=== PATIENT | female | born 1995 | race Caucasian/White ===

== ENCOUNTER 2016-10-29 14:36 | Observation (INO) | payer OTHER ==
[2012-09-12 19:47] VITALS: O2SAT 98
[2016-10-29 15:02] VITALS: RESP 18
[2016-10-29 15:45] VITALS: BP 108/59; PULSE 64; TEMP 99.1
[2016-10-29 16:08] LABS: APPEARANCE,URINE Slightly Cloudy; BILIRUBIN,URINE NEGATIVE (NEGATIVE); COLOR,URINE Yellow; GLUCOSE, URINE (UA) NEGATIVE (NEGATIVE); KETONES,URINE NEGATIVE (NEGATIVE); LEUKOCYTE ESTERASE ,URINE 2+ (NEGATIVE); NITRATE,URINE NEGATIVE (NEGATIVE); OCCULT BLOOD,URINE NEGATIVE (NEG-TRACE); UROBILINOGEN,URINE 0.2 (0.2-1.0 EU)
[2016-10-29 16:22] LABS: RBC,URINE NEG (0-3AV/HPF)
== END 2016-10-29 17:35 | disposition home or self-care (01) | DRG 780 ==
LOC: OB 14:36
PROVIDERS: ADMIT Family Medicine; ATTEND Family Medicine
DX: O47.1 False labor at or after 37 completed weeks of gestation (principal); Z3A.37 37 weeks gestation of pregnancy
CPT/HCPCS: 59025; 81001

== ENCOUNTER 2016-11-11 09:15 | Inpatient (IN) | payer OTHER ==
[2016-11-11] MEDS ORDERED: OXYTOCIN 10000 MU/ML SOL IM PRN (09:32)
[2016-11-11] MEDS ORDERED: LACTATED RINGERS 1,000 ML IV PRN (09:32)
[2016-11-11] MEDS ORDERED: CARBOPROST 250 MCG/ML SOL IM PRN (09:32)
[2016-11-11] MEDS ORDERED: MEPIVACAINE HCL 1% MPF 30 ML SOL INFIL PRN (09:32)
[2016-11-11] MEDS ORDERED: FENTANYL 100MCG/2ML SOL IV PRN (09:32)
[2016-11-11] MEDS ORDERED: METHYLERGONOVINE MALEATE 0.2 MG/ML SOL IM PRN (09:32)
[2016-11-11] MEDS ORDERED: SODIUM CHLORIDE 0.9% FLUSH 10 ML SOL IV PRN (09:32)
[2016-11-11] MEDS ORDERED: SODIUM CHLORIDE 0.9% FLUSH 10 ML SOL IV SCH (09:45)
[2016-11-11 10:33] LABS: BASOPHILS % (AUTO) 0 % (0-3); EOSINOPHILS % (AUTO) 1 % (0-9); HEMATOCRIT 36 % (35-47); MEAN CORPUSCULAR HGB CONC 36.8 gm/dl (32.0-36.0); MEAN CORPUSCULAR VOLUME 86 fL (81-99); MONOCYTES % (AUTO) 8.7 % (0-12); NEUTROPHILS % (AUTO) 76.1 % (37-80)
[2016-11-11] MEDS ORDERED: MORPHINE SULFATE 0.5 MG/ML SOL ONE (10:58)
[2016-11-11] MEDS ORDERED: DIPHENHYDRAMINE 50 MG/ML SOL IM PRN (10:59)
[2016-11-11] MEDS ORDERED: HYDROXYZINE HYDROCHLORIDE 25 MG/ML SOL IM PRN (10:59)
[2016-11-11] MEDS ORDERED: NALOXONE HYDROCHLORIDE 0.4 MG/ML SOL IV PRN (10:59)
[2016-11-11] MEDS ORDERED: DIPHENHYDRAMINE 25 MG CAP PO PRN (10:59)
[2016-11-11] MEDS ORDERED: LACTATED RINGERS 1,000 ML IV SCH ×2 (11:00)
[2016-11-11] MEDS ORDERED: TEMAZEPAM 15MG 15 MG CAP PO PRN (14:57)
[2016-11-11] MEDS ORDERED: METHYLERGONOVINE MALEATE 0.2 MG TAB PO PRN (14:57)
[2016-11-11] MEDS ORDERED: BISACODYL 10 MG SUP PR PRN (14:57)
[2016-11-11] MEDS ORDERED: APAP/HYDROCODONE 325/5 TAB PO PRN (14:57)
[2016-11-11] MEDS ORDERED: BENZOCAINE/MENTHOL 1 SPR TOP PRN (14:57)
[2016-11-11] MEDS ORDERED: FLEET ENEMA PR PRN (14:57)
[2016-11-11] MEDS: IBUPROFEN 600 MG TAB PO PRN (15:25)
[2016-11-11] MEDS ORDERED: ONDANSETRON 4 MG ODT BU PRN (17:03)
[2016-11-11] MEDS ORDERED: ONDANSETRON 4 MG ODT ONE (17:13)
[2016-11-11] MEDS: SODIUM CHLORIDE 0.9% FLUSH 10 ML SOL IV SCH (18:02)
[2016-11-11] MEDS ORDERED: DOCUSATE SODIUM 100 MG SGL ONE (22:21)
[2016-11-11] MEDS: DOCUSATE SODIUM 100 MG SGL PO SCH (22:24)
[2016-11-12] MEDS: SODIUM CHLORIDE 0.9% FLUSH 10 ML SOL IV SCH ×2 (01:50→15:08)
[2016-11-12] MEDS: IBUPROFEN 600 MG TAB PO PRN ×2 (07:25→21:55)
[2016-11-12] MEDS: MULTIVITAMIN2 1 EA TAB PO SCH (08:58)
[2016-11-12] MEDS: DOCUSATE SODIUM 100 MG SGL PO SCH ×2 (08:58→21:55)
[2016-11-12] MEDS: FOLIC ACID 1 MG TAB PO SCH (08:59)
[2016-11-12 15:06] LABS: ABO A
[2016-11-12 15:08] LABS: RH TYPE Negative
[2016-11-12 15:37] VITALS: O2SAT 97
[2016-11-12 22:00] VITALS: RESP 16
[2016-11-12] MEDS: WITCH HAZEL 1 EA PAD TOP PRN (22:04)
[2016-11-13] MEDS: IBUPROFEN 600 MG TAB PO PRN (06:58)
[2016-11-13 07:02] VITALS: BP 109/67; PULSE 66; TEMP 97.5
[2016-11-13] MEDS: WITCH HAZEL 1 EA PAD TOP PRN (08:38)
[2016-11-13] MEDS: MULTIVITAMIN2 1 EA TAB PO SCH (08:38)
[2016-11-13] MEDS: DOCUSATE SODIUM 100 MG SGL PO SCH (08:38)
[2016-11-13] MEDS: FOLIC ACID 1 MG TAB PO SCH (08:38)
== END 2016-11-13 13:00 | disposition home or self-care (01) | DRG 775 ==
LOC: UNDOADMOB 09:15 → OB 09:15 → OBSVTOIN 09:15
PROVIDERS: ADMIT Family Medicine; ATTEND Family Medicine
PROC: 10E0XZZ Delivery of Products of Conception, External Approach (ICD-10-PCS; principal; 2016-11-11)
PROC: 10907ZC Drainage of Amniotic Fluid, Therapeutic from Products of Conception, Via Natural or Artificial Opening (ICD-10-PCS; 2016-11-11)
DX: O76 Abnormality in fetal heart rate and rhythm complicating labor and delivery (principal); O69.81X0 Labor and delivery complicated by cord around neck, without compression, not applicable or unspecified; O71.82 Other specified trauma to perineum and vulva; Z3A.39 39 weeks gestation of pregnancy; Z37.0 Single live birth
CPT/HCPCS: 36415; 59025; 85018; 85025; 86900; 86901; 94760; J0670; J2274; J2590; J3010

== ENCOUNTER 2017-06-01 19:40 | Emergency (ER) | payer OTHER ==
[2017-06-01 20:17] VITALS: BP 116/75; PULSE 71; RESP 16; TEMP 97.9; O2SAT 98
== END 2017-06-01 20:36 | disposition home or self-care (01) | DRG 125 ==
LOC: ED 19:40
DX: S05.01XA Injury of conjunctiva and corneal abrasion without foreign body, right eye, initial encounter (principal); H10.31 Unspecified acute conjunctivitis, right eye
CPT/HCPCS: 99282

== ENCOUNTER 2017-06-22 20:01 | Emergency (ER) | payer OTHER ==
[2017-06-22 20:15] VITALS: RESP 16; TEMP 99.8
[2017-06-22] MEDS ORDERED: AMOXICILLIN 250 MG CAP PO ONE (21:33)
[2017-06-22] MEDS ORDERED: AMOXICILLIN 125/5 ML BOTTLE ONE (21:35)
[2017-06-22 21:50] VITALS: BP 110/76; PULSE 78; O2SAT 99
== END 2017-06-22 21:46 | disposition home or self-care (01) | DRG 153 ==
LOC: ED 20:01
DX: J03.90 Acute tonsillitis, unspecified (principal)
CPT/HCPCS: 87430; 87804; 99282; A9270-GY

== ENCOUNTER 2018-04-03 08:32 | Inpatient (IN) | payer OTHER ==
[2018-04-03] MEDS ORDERED: OXYTOCIN 10000 MU/ML SOL IM PRN (08:40)
[2018-04-03] MEDS: SODIUM CHLORIDE 0.9% FLUSH 10 ML SOL IV SCH ×3 (08:40→23:40)
[2018-04-03] MEDS ORDERED: LACTATED RINGERS 1,000 ML IV PRN (08:40)
[2018-04-03] MEDS ORDERED: SODIUM CHLORIDE 0.9% FLUSH 10 ML SOL IV PRN (08:40)
[2018-04-03] MEDS: IBUPROFEN 600 MG TAB PO PRN ×2 (10:00→23:38)
[2018-04-03 12:57] LABS: BASOPHILS % (AUTO) 0 % (0-3); EOSINOPHILS % (AUTO) 2 % (0-9); HEMATOCRIT 42 % (35-47); HEMOGLOBIN 13.4 gm/dl (12.0-15.5); LYMPHOCYTES % (AUTO) 15.7 % (10-50); MEAN CORPUSCULAR HEMOGLOBIN 28.7 pg (27.0-32.0); MEAN CORPUSCULAR VOLUME 90 fL (81-99); MONOCYTES % (AUTO) 8.6 % (0-12); NEUTROPHILS % (AUTO) 73.6 % (37-80)
[2018-04-03] MEDS ORDERED: APAP/HYDROCODONE 1 EACH TABLET PO PRN (15:09)
[2018-04-03] MEDS ORDERED: TEMAZEPAM 15MG 15 MG CAP PO PRN (15:09)
[2018-04-03] MEDS ORDERED: WITCH HAZEL 1 EA PAD TOP PRN (15:09)
[2018-04-03] MEDS ORDERED: BISACODYL 10 MG SUP PR PRN (15:09)
[2018-04-03] MEDS ORDERED: BENZOCAINE/MENTHOL 1 SPR TOP PRN (15:09)
[2018-04-03] MEDS ORDERED: METHYLERGONOVINE MALEATE 0.2 MG TAB PO PRN (15:09)
[2018-04-03] MEDS ORDERED: FLEET ENEMA PR PRN (15:09)
[2018-04-03 17:32] VITALS: RESP 18
[2018-04-03] MEDS: DOCUSATE SODIUM 100 MG SGL PO SCH (21:17)
[2018-04-04] MEDS: IBUPROFEN 600 MG TAB PO PRN ×2 (06:20→17:13)
[2018-04-04] MEDS: DOCUSATE SODIUM 100 MG SGL PO SCH (08:32)
[2018-04-04] MEDS: SODIUM CHLORIDE 0.9% FLUSH 10 ML SOL IV SCH ×2 (09:48→17:14)
[2018-04-04 11:07] LABS: ABO A
[2018-04-04 11:11] LABS: RH TYPE Negative
[2018-04-04 18:47] VITALS: BP 109/72; PULSE 65; TEMP 98.8; O2SAT 97
== END 2018-04-04 20:25 | disposition home or self-care (01) | DRG 807 ==
LOC: UNDOADMIN 08:32 → OB 08:32 → OBOP 08:32 → EDSTATUS 10:05
PROVIDERS: ADMIT Family Medicine; ATTEND Family Medicine
PROC: 10E0XZZ Delivery of Products of Conception, External Approach (ICD-10-PCS; principal; 2018-04-03)
DX: O80 Encounter for full-term uncomplicated delivery (principal); Z37.0 Single live birth; Z3A.39 39 weeks gestation of pregnancy
CPT/HCPCS: 36415; 59025; 85018; 85025; 86900; 86901; J2590; A9270-GY

== ENCOUNTER 2019-01-16 17:01 | Emergency (ER) | payer OTHER | END 2019-01-16 20:03 | disposition home or self-care (01) | LOC: ED 17:01 ==